=== PATIENT | female | born 1975 | race American Indian/Alaskan Native ===

== ENCOUNTER 2019-02-23 08:35 | Day surgery (SDC) | payer MEDICAID ==
[2019-02-19 16:59] VITALS: BMI 38.7
[2019-02-23] MEDS ORDERED: Silver Nitrate Topical - Stick ONE (09:05)
[2019-02-23] MEDS ORDERED: Strong Iodine Topical Sol. 5%-10% ONE (09:06)
[2019-02-23] MEDS ORDERED: cefOXitin IV 1 gm in Dextrose 0 GM/0 ML BAG IVPB ONE (09:06)
[2019-02-23 09:11] VITALS: RESP 18
--- NOTE | 2019-02-23 09:30 | CP.SDSHP ---
Same Day Surgery H & P - History Proposed Procedure: D&C Hysteroscopy/possbile Myosure procedure Pre-Op Diagnosis: Postmenopausal bleeding - Previous Medical/Surgical History Pulmonary: Asthma, Other Comments: Hx Pulm Embolus; GERD; Anxiety; Previous Surgical History: D&C 2015; gallbladder - Allergies Allergies: Allergies No Known Allergies Allergy (Unverified 12/21/13 14:55) - Current Medications Current Medications: Warelto 20mg po QD; albuterol - Physical Exam General Appearance: In NAD Vital Signs: Vital Signs 02/23/19 02/23/19 09:04 09:11 Temperature 98.5 F Pulse Rate 61 61 Respiratory 18 Rate Blood Pressure 105/61 O2 Sat by Pulse 98 Oximetry Mental Status: Alert & Oriented x3 Neuro: WNL Heart: WNL Lungs: WNL GI: WNL - {Optional Preform as Required} Abdomen: WNL GIFT PACKER: WNL - Impression Impression: Postmenopausal bleeding; Hx fibroid uterus - Condition, procedure with its risks/complications discussed. Her questions answered. Informed consent obtained Pt. Evaluated Today:Candidate for Anesthesia & Procedure: Yes (Cleared by PMD; to take Lovenox x 3d then re-start Xarelto) - Date & Time Date: 02/23/19 Time: 09:15 Short Stay Discharge - Short Stay Discharge Admitting Diagnosis/Reason for Visit: N95.0 Disposition: HOME/ ROUTINE
[2019-02-23] MEDS ORDERED: Lactated Ringer's 1,000 ML IV ONE (09:51)
[2019-02-23 10:29] LABS: BASO # 0.1 K/uL (0.0-0.2); BASO % 1.3 % (0.0-2.0); EOS # 0.2 K/uL (0.0-0.7); EOS % 2.7 % (0.0-4.0); HEMOGLOBIN 12.7 g/dL (12.0-16.0); LYMPH # 3.9 K/uL (1.0-4.3); LYMPH % 46.8 % (20.0-40.0); MEAN CELL VOLUME 81.7 fl (81.0-99.0); MEAN CORPUSCULAR HGB CONC 31.8 g/dL (33.0-37.0); MEAN PLATELET VOLUME 8.4 fl (7.2-11.7); MONO # 0.5 K/uL (0.0-0.8); MONO % 5.7 % (0.0-10.0); NEUT # 3.6 K/uL (1.8-7.0); NEUT % 43.5 % (50.0-75.0); RBC 4.87 Mil/uL (3.80-5.20); WHITE BLOOD COUNT 8.2 K/uL (4.8-10.8)
[2019-02-23] MEDS ORDERED: Succinylcholine 200 mg/10 ml Inj IV ONE (10:40)
[2019-02-23] MEDS ORDERED: Propofol 10 mg/ml Inj (20 ML) ONE (10:41)
[2019-02-23] MEDS ORDERED: Midazolam 2 MG/2 ML VIAL ONE (10:41)
[2019-02-23] MEDS ORDERED: Ferric Subsulfate Sol(60 mL) TP ONE (10:57)
[2019-02-23] MEDS ORDERED: Oxycodone/Acetaminophen 5/325 mg Tab PO PRN (11:30)
[2019-02-23] MEDS ORDERED: Albuterol HFA 90 mcg/actuation (8 g) ONE (11:30)
[2019-02-23] MEDS ORDERED: Acetaminophen-Codeine 300/30 mg Tab PO PRN (11:31)
[2019-02-23] MEDS ORDERED: HYDROmorphone 0.5 mg/0.5 ml ISec IVP PRN (11:56)
--- NOTE | 2019-02-23 12:19 | PCM.SURG1 ---
Surgeon's Initial Post Op Note - Surgeon's Notes Surgeon: Patel Corona DO Marker Machine Attendant: none Type of Anesthesia: General Endo Anesthesia Administered By: Dr Leonidas Ward Pre-Operative Diagnosis: post menopausal bleeding Operative Findings: -stenotic cervix. -endometrial tissue - moderate amount. - fractional D&C hysteroscopy/Myosure. -ECC/EMC Post-Operative Diagnosis: same Operation Performed: Dilation/hysteroscopy/Myosure procedure - Fractional D&C Specimen/Specimens Removed: ECC / EMC Estimated Blood Loss: EBL {In ML}: 50 Blood Products Given: N/A Drains Used: No Drains Date of Surgery/Procedure: 02/23/19 Time of Surgery/Procedure: 10:30
[2019-02-23 14:50] VITALS: BP 132/83; PULSE 64; TEMP 98; O2SAT 95
--- NOTE | 2019-02-27 08:13 | OP ---
PROCEDURE DATE: 02/23/2019 PREOPERATIVE DIAGNOSIS: Postmenopausal bleeding. POSTOPERATIVE DIAGNOSIS: Cervical stenosis. SURGEON: Kory Corona DO KARATE INSTRUCTOR: None. ANESTHESIOLOGIST: Karthik Ward MD ANESTHESIA: General endotracheal. OPERATIVE FINDINGS: Stenotic cervix, endometrial tissue, moderate amount was noted and collected. Threshold D and C, hysteroscopy, MyoSure procedure was performed, endometrial curetting, and endocervical curetting. Endocervical curetting and endometrial curetting obtained. PROCEDURE PERFORMED: Dilation, hysteroscopy, MyoSure procedure, fractional dilation and curettage. ESTIMATED BLOOD LOSS: 50 mL. No bloods given. DESCRIPTION OF PROCEDURE: The patient was brought to the operating room. Compression boots were placed on both lower extremities. She was placed in the supine position after successful induction of general anesthesia by Dr. Ward. She was placed in lithotomy position. She was draped and prepped in the usual sterile manner. Catheter was used to drain the bladder with contents. A weighted speculum was placed in the posterior fornix of the vagina, right-angle retractor in the anterior fornix of the vagina to visualize the cervix. The cervix was grasped at the 12 o'clock position using a single-tooth tenaculum. Thereafter, using dilators, the cervix was gradually dilated. Thereafter, hysteroscope was introduced into the endocervical canal, into the endometrium, no mass lesions were noted in the endocervix, in the endometrial cavity noted to be a moderate amount of tissue. Using MyoSure procedure, a specimen was obtained, curetting was performed, and hysteroscope was removed. Thereafter, using Kevorkian curette, curetting was performed of the endocervical canal. Then, this was sent to pathology lab. Using a small curette, additional endometrial curetting was obtained and was sent with the first specimen. All equipment was removed and accounted for. Good hemostasis assured. She was brought to the recovery room in stable condition and scheduled to follow up at the office in two to three weeks to discuss pathology reports. Kory Corona DO
== END 2019-02-23 15:05 | disposition home or self-care (01) ==
LOC: H.OPSURG 08:35
PROVIDERS: ATTEND Obstetrics & Gynecology
DX: N95.0 Postmenopausal bleeding (principal); M48.02 Spinal stenosis, cervical region; Z79.899 Other long term (current) drug therapy; J45.909 Unspecified asthma, uncomplicated; D25.9 Leiomyoma of uterus, unspecified
CPT/HCPCS: 36415; 58558; 85025; 86850; 86900; 88305; J0330; J0690; J1885; J2001; J2250; J2405; J2704; J2765; J3010; J7120